=== PATIENT | female | born 1970 | race African-American/Black ===

== ENCOUNTER 2020-01-15 15:25 | Emergency (ER) | payer MEDICARE, OTHER, SELFPAY ==
[~2020-01-15] VITALS: Ht 160 cm; Wt 77.8 kg
--- NOTE | 2020-01-15 16:07 | NUR ---
Pt brought back from triage with chief complaint of right flank pain and painful urination for 2 days.
[2020-01-15] MEDS ORDERED: ONDANSETRON 2MG/ML, 2ML ONE (16:22)
[2020-01-15] MEDS ORDERED: HYDROmorphone 1 MG/ML, 1ML INJ ONE (16:22)
[2020-01-15] MEDS ORDERED: HYDROmorphone 2 MG/ML, 1ML IVPush PRN (16:30)
[2020-01-15] MEDS ORDERED: ONDANSETRON 2MG/ML, 2ML IVPush ONE (16:30)
[2020-01-15] MEDS ORDERED: SODIUM CHLORIDE FLUSH 10ML SYR IVF ONE (16:30)
[2020-01-15 16:44] LABS: BASOPHILS # (AUTO) 0.02 x10^3/uL (0-0.1); BASOPHILS % (AUTO) 0 % (0-1); EOSINOPHILS # (AUTO) 0.02 x10^3/uL (0-0.4); EOSINOPHILS % (AUTO) 0 % (1-7); LYMPHOCYTES # (AUTO) 1.38 x10^3/uL (1-3.4); LYMPHOCYTES % (AUTO) 16 % (22-44); MD NO; MEAN CORPUSCULAR HEMOGLOBIN 26.9 pg (27.0-34.8); MEAN CORPUSCULAR HGB CONC 32.2 g/dL (32.4-35.8); MEAN CORPUSCULAR VOLUME 83.7 fL (80-100); MEAN PLATELET VOLUME 8.6 fL (7.4-10.4); MONOCYTES # (AUTO) 0.09 x10^3/uL (0.2-0.8); MONOCYTES % (AUTO) 1 % (2-9); NEUTROPHILS # (AUTO) 7.42 x10^3/uL (1.8-6.8); NEUTROPHILS % (AUTO) 83 % (42-75); PLATELET COUNT 210 x10^3/uL (130-400); RED CELL DISTRIBUTION WIDTH 15.2 % (9.6-15.2)
[2020-01-15 16:56] LABS: ALANINE AMINOTRANSFERASE 48 U/L (12-78); ALBUMIN 3.4 g/dL (3.4-5.0); ANION GAP 8 mmol/L (5-15); CALCIUM 8.4 mg/dL (8.5-10.1); CHLORIDE 110 mmol/L (98-107); CREATININE 1.57 mg/dL (0.55-1.02)
[2020-01-15 16:58] LABS: ALKALINE PHOSPHATASE 105 U/L (45-117); BILIRUBIN,TOTAL 0.3 mg/dL (0.2-1.0); TOTAL PROTEIN 7.5 g/dL (6.4-8.2)
--- NOTE | 2020-01-15 17:08 | NUR ---
Pt resting in bed. call light in reach.
[2020-01-15 17:18] LABS: MICROSCOPIC INDICATED
[2020-01-15 17:38] VITALS: BP 96/60
--- NOTE | 2020-01-15 17:54 | NUR ---
JANINE MCCLAIN AT BEDSIDE TO DISCUSS POC.
== END 2020-01-15 18:05 ==
LOC: ED 18:04
DX: R10.9 Unspecified abdominal pain (principal); M54.9 Dorsalgia, unspecified; R30.0 Dysuria; F17.200 Nicotine dependence, unspecified, uncomplicated
CPT/HCPCS: 36415; 74176; 80053; 81001; 83605; 85025; 87040; 87086; 96374; 96375; 99284; J1170; J2405